=== PATIENT | female | born 1990 | race Caucasian/White ===

== ENCOUNTER 2016-09-04 22:06 | Inpatient (IN) | payer OTHER ==
[~2016-09-04] VITALS: Ht 165.1 cm; Wt 64.5 kg
[2016-09-04 22:16] VITALS: BP 119/82; PULSE 100; RESP 17; TEMP 97.8
[2016-09-04] MEDS ORDERED: SPRI28TA PO (22:24)
[2016-09-04 22:37] LABS: AUTOMATED NEUTROPHIL # 14.9 TH/MM3 (1.8-7.7); BASOPHIL # 0.1 TH/MM3 (0-0.2); BASOPHIL % 0.5 % (0.0-2.0); EOSINOPHIL # 0.1 TH/MM3 (0-0.4); EOSINOPHIL % 0.4 % (0.0-4.0); HEMATOCRIT 35.7 % (35.0-46.0); HEMO FLAGS DIFF FINAL; LYMPH % 19.5 % (9.0-44.0); MEAN CELL VOLUME 95.9 FL (80.0-100.0); MEAN CORPUSCULAR HEMOGLOBIN 31.7 PG (27.0-34.0); MEAN CORPUSCULAR HGB CONC 33.1 % (32.0-36.0); MONO % 6.3 % (0.0-8.0); NEUT % 73.3 % (16.0-70.0); PLATELET COUNT 282 TH/MM3 (150-450); RED BLOOD COUNT 3.72 MIL/MM3 (4.00-5.30); RED CELL DISTRIBUTION WIDTH 13.5 % (11.6-17.2); WHITE BLOOD COUNT 20.3 TH/MM3 (4.0-11.0)
[2016-09-04] MEDS ORDERED: MORPHINE SULFATE 4 MG/ML INJ IV PUSH ONE (22:45)
[2016-09-04] MEDS ORDERED: SODIUM CHLOR 0.9% 1000 ML INJ 1,000 ML IV ONE (22:45)
[2016-09-04] MEDS ORDERED: ONDANSETRON HCL 4 MG/2 ML VIAL IV PUSH ONE (22:45)
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
[2016-09-04 22:50] LABS: APTT (PATIENT) 21.3 SEC (24.3-30.1); PROTHROMBIN TIME - PATIENT 11.2 SEC (9.8-11.6)
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
[2016-09-04 22:56] LABS: ALKALINE PHOSPHATASE 72 U/L (45-117); TOTAL BILIRUBIN ADULT 0.3 MG/DL (0.2-1.0)
[2016-09-04] MEDS ORDERED: HYDROmorphone HCL PF 2 MG/ML VIAL IVS ONE (23:00)
[2016-09-04 23:06] VITALS: BP 102/53; PULSE 103; RESP 17; O2SAT 97
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
[2016-09-04 23:11] LABS: ALT (GPT) 200 U/L (10-53); ANION GAP 12 MEQ/L (5-15); AST (GOT) 462 U/L (15-37); BICARBONATE 20.8 MEQ/L (21.0-32.0); BLOOD UREA NITROGEN 11 MG/DL (7-18); CHLORIDE 115 MEQ/L (98-107); GLOMERULAR FILTRATION RATE 69 ML/MIN (>89); SODIUM (NA) 148 MEQ/L (136-145)
[2016-09-04 23:25] LABS: BLOOD, URINE LARGE (NEG); COMMENT (UR) CULTURE INDICATED; CULTURE IF INDICATED CULTURE INDICATED; GLUCOSE,URINE NEG (NEG); KETONE, URINE NEG (NEG); MUCUS URINE FEW /lpf (OCC); NITRITE,URINE NEG (NEG); PH, URINE 7.5 (5.0-8.5); SQUAMOUS EPITHELIAL CELL URINE 1 /hpf (0-5); URINE COLOR YELLOW (YELLW/STRAW)
[2016-09-04] MEDS ORDERED: IOHEXOL 350 MG/ML 10 ML VIAL (for RAD DIAG) IV ONE (23:37)
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
[2016-09-05] VITALS (13 sets, daily range): BP systolic 98–124; BP diastolic 54–67; PULSE 84–110; RESP 13–17; TEMP 98–98.6; O2SAT 96–100
[2016-09-05] MEDS ORDERED: MORPHINE SULFATE 4 MG/ML INJ IV PUSH ONE
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
[2016-09-05] MEDS ORDERED: NALOXONE HCL 0.4 MG/ML AMP IV PRN (00:15)
[2016-09-05] MEDS ORDERED: SODIUM CHLORIDE 0.9% FLUSH 10 ML FLUSH IV FLUSH PRN (00:15)
[2016-09-05] MEDS ORDERED: ONDANSETRON HCL 4 MG/2 ML VIAL IV PRN (00:15)
[2016-09-05] MEDS ORDERED: oxyCODONE/ACETAMINOPHEN 5 MG/325 MG TAB PO PRN (00:15)
[2016-09-05] MEDS ORDERED: Post-op Orders (for Pharmacy) MISC XX ONE (00:15)
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
[2016-09-05] MEDS: PANTOPRAZOLE SOD 40 MG DELAYED RELEASE TAB PO SCH ×2 (00:43→23:33)
[2016-09-05] MEDS: SODIUM CHLOR 0.9% 1000 ML INJ 1,000 ML IV SCH ×3 (00:43→20:53)
[2016-09-05 00:48] LABS: HEMATOCRIT 32.2 % (35.0-46.0)
[2016-09-05] MEDS ORDERED: LIDOCAINE 1%/EPINEPHrine 1:100,000 SOLN 20 ML VIAL INFIL ONE (01:00)
[2016-09-05] MEDS: MORPHINE SULFATE 4 MG/ML INJ IV PRN ×2 (01:02→03:23)
[2016-09-05] MEDS ORDERED: ceFAZolin 2 GM PREMIX 50 ML ONE (01:13)
[2016-09-05] MEDS ORDERED: ceFAZolin 2 GM PREMIX 50 ML IV ONE (01:45)
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
[2016-09-05] MEDS ORDERED: ceFAZolin INJ 1,000 MG VIAL ONE (07:29)
[2016-09-05] MEDS: METHOCARBAMOL 500 MG TAB PO SCH ×3 (07:45→20:52)
[2016-09-05 07:54] LABS: HEMATOCRIT 33.1 % (35.0-46.0); REVIEW FLAG FINAL
[2016-09-05] MEDS: DOCUSATE SODIUM 50 MG/SENNA 8.6 MG TAB PO SCH ×2 (08:41→20:52)
[2016-09-05] MEDS: SODIUM CHLORIDE 0.9% FLUSH 10 ML FLUSH IV FLUSH SCH ×2 (08:41→21:00)
[2016-09-05] MEDS ORDERED: HYDROmorphone HCL PF 2 MG/ML VIAL ONE (09:31)
[2016-09-05] MEDS ORDERED: ACETAMINOPHEN 1000 MG/100 ML VIAL IV ONE (09:31)
[2016-09-05] MEDS ORDERED: MULTIVITAMIN INJ 10 ML, THIAMINE INJ 100 MG, FOLIC ACID INJ 1 MG in SODIUM CHLORID 0.9%... IV ONE (10:00)
[2016-09-05] MEDS ORDERED: SODIUM CHLOR 0.9% 250 ML INJ 250 ML ONE (10:03)
[2016-09-05] MEDS ORDERED: VANCOMYCIN HCL 1000 MG VIAL ONE (10:03)
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
[2016-09-05] MEDS: LACTATED RINGER'S 1000 ML INJ 1,000 ML IV SCH ×2 (11:02→20:53)
[2016-09-05] MEDS ORDERED: MIDAZOLAM HCL 2 MG/2 ML VIAL ONE (11:27)
[2016-09-05] MEDS ORDERED: fentaNYL CITRATE 250 MCG/5 ML AMP ONE (11:27)
[2016-09-05] MEDS ORDERED: *MEPERIDINE 25 MG INJ VIAL PERIprocedural Use ONLY ONE (11:31)
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
[2016-09-05] MEDS ORDERED: PROPOFOL 200 MG/20 ML AMP IV ONE (12:00)
[2016-09-05] MEDS ORDERED: NEOSTIGMINE 3 MG/3 ML SYR IV ONE (12:00)
[2016-09-05] MEDS ORDERED: LACTATED RINGER'S 1000 ML INJ 1,000 ML IV ONE (12:00)
[2016-09-05] MEDS ORDERED: PHENYLEPH/NS 1000 MCG/10 ML SYR IV ONE (12:00)
[2016-09-05] MEDS ORDERED: ONDANSETRON HCL 4 MG/2 ML VIAL IV PUSH ONE (12:00)
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
[2016-09-05] MEDS: MORPHINE SULFATE 4 MG/ML INJ IV PUSH PRN ×2 (12:41→20:50)
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
[2016-09-05] MEDS ORDERED: MIDAZOLAM HCL 5 MG/ML VIAL (1 ML) ONE (13:13)
--- NOTE | 2016-09-05 13:26 | RADRPT ---
EXAM DATE/TIME: 09/05/2016 10:42 [facility] COMPARISON: No previous studies available for comparison. INDICATIONS : Pelvis fracture external fixation with SI joint screws. OR. MEDICAL HISTORY : None. SURGICAL HISTORY : None. ENCOUNTER: Initial ACUITY: 1 day PAIN SCORE: Non-responsive. LOCATION: pelvis FINDINGS: 7 spot intraoperative fluoroscopic views of the pelvis are obtained and demonstrate external fixation hardware placement of the bilateral iliac bones, as well as screws traversing the bilateral sacroili ac joints. Displaced oblique fractures through the bilateral superior pubic rami are noted as well as a right inferior pubic ramus fracture. CONCLUSION: Postoperative changes are noted. Rob Oconnor MD on September 05, 2016 at 13:24 Board Certified Radiologist. This report was verified electronically.
[2016-09-05] MEDS ORDERED: MIDAZOLAM HCL 2 MG/2 ML VIAL IV ONE (14:15)
[2016-09-05] MEDS ORDERED: PROPOFOL 1000 MG/100 ML INJ 100 ML ONE (17:04)
[2016-09-05] MEDS ORDERED: SUCCINYLCHOLINE CHLORIDE 200 MG/10 ML VIAL ONE (17:19)
--- NOTE | 2016-09-05 17:48 | HHI.PR ---
Immediate Post Op Note Procedure Date: September 05, 2016 Pre Op Diagnosis: (1) Dislocation, shoulder closed left shoulder dislocation - anterior Post Op Diagnosis: (1) Dislocation, shoulder closed Surgeon: Al Leblanc Audiovisual Tech(s): none Procedure: Closed reduction of left shoulder Findings: Consent was given for closer reduction of left shoulder with conscious sedation. The patient tolerated the procedure well. She underwent conscious duration and once sedation was achieved, the left shoulder was manually reduced. Afterwards reduction was confirmed with x-ray examination. She was then placed into a sling and swath. She'll remain nonweightbearing and maintain her sling and swath at all times Anesthesia: Conscious Sedation Patient to: [facility] Patient Condition: Good Al Leblanc September 05, 2016 17:48
--- NOTE | 2016-09-05 17:51 | PD.ORT.PN ---
Subjective Subjective Remarks POD 0 s/p reduction bilateral SI joints and application pelvic exfix POD 0 s/p closed reduction of left shoulder Objective Vitals Vital Signs Date Time Temp Pulse Resp B/P Pulse Ox O2 Delivery O2 Flow Rate FiO2 09/05/16 16:00 86 09/05/16 14:00 98 09/05/16 12:46 18 09/05/16 12:02 109 20 134/81 100 Nasal Cannula 2 09/05/16 12:00 100 09/05/16 11:45 105 20 146/76 100 Nasal Cannula 2 09/05/16 11:30 101 20 147/90 100 Nasal Cannula 2 09/05/16 11:22 97.7 102 20 134/69 95 Nasal Cannula 2 09/05/16 07:45 110 09/05/16 07:30 98.4 101 13 112/64 99 09/05/16 07:04 13 09/05/16 07:00 99 Room Air 09/05/16 06:00 100 09/05/16 04:00 98.2 104 15 100/58 96 09/05/16 04:00 104 09/05/16 02:00 98.0 104 14 98/54 96 09/05/16 02:00 104 09/05/16 01:00 103 19 105/58 99 09/05/16 00:10 18 09/05/16 00:00 110 17 106/61 99 Room Air 09/04/16 23:37 17 09/04/16 23:06 103 17 102/53 97 Room Air 09/04/16 22:52 17 09/04/16 22:16 97.8 100 17 119/82 I/O 09/04/16 09/04/16 09/04/16 09/05/16 09/05/16 09/05/16 07:00 15:00 23:00 07:00 15:00 23:00 Intake Total 455 ml 2695 ml Output Total 1075 ml 10 ml Balance -620 ml 2685 ml Intake Oral 50 ml IV Total 405 ml 45 ml Other 2650 ml Output Urine Total 1075 ml Stool Total 0 ml Estimated Blood Loss 10 ml Result Diagram: 09/05/16 0642 09/04/16 2220 Other Results Laboratory Tests Test 09/04/16 22:20 Prothrombin Time 11.2 SEC (9.8-11.6) Prothromb Time International 1.0 RATIO Ratio Imaging Last 24 hours Impressions Shoulder X-Ray 09/05/16 0000 Signed Impressions: Service Date/Time: Monday, September 05, 2016 12:36 - CONCLUSION: Anterior shoulder dislocation. Rob Oconnor MD Pelvis X-Ray 09/05/16 0000 Signed Impressions: Service Date/Time: Monday, September 05, 2016 10:42 - CONCLUSION: Postoperative changes are noted. Rob Oconnor MD Abdomen/Pelvis CT 09/04/162237 Signed Impressions: Service Date/Time: Sunday, September 04, 2016 23:34 - CONCLUSION: 1. Large hepatic laceration of right hepatic lobe with tiny amount of fluid adjacent to the tip of the liver. 2. Multiple fractures. 3. Extraperitoneal hematomas within the pelvis. 4. Slight right lung base contusion and/or atelectasis. Abdi Vang MD Pelvis X-Ray 09/04/162216 Signed Impressions: Service Date/Time: Sunday, September 04, 2016 22:30 - CONCLUSION: Bilateral fractures through the superior and inferior pubic rami. Antolin Roberts MD Lumbar Spine CT 09/04/162216 Signed Impressions: Service Date/Time: Sunday, September 04, 2016 23:36 - CONCLUSION: Multiple fractures, extraperitoneal hematomas within the pelvis discussed on the patient's CT abdomen and pelvis without any significant thecal sac stenosis, however some of the fractures involve the right sacral foramina and injury to sacral roots particularly the right S1 and S2 nerves is not excluded. Abdi Vang MD Head CT 09/04/162216 Signed Impressions: Service Date/Time: Sunday, September 04, 2016 23:28 - CONCLUSION: Unremarkable study except for slight left frontal scalp hematoma. Abdi Vang MD Chest X-Ray 09/04/162216 Signed Impressions: Service Date/Time: Sunday, September 04, 2016 22:32 - CONCLUSION: No acute disease. Antolin Roberts MD Cervical Spine CT 09/04/162216 Signed Impressions: Service Date/Time: Sunday, September 04, 2016 23:28 - CONCLUSION: Unremarkable study. Abdi Vang MD Objective Remarks Pelvis: pin sites clean. minimal drainage. dressings clean and dry. Left shoulder: +sling/swathe. NVI Assessment & Plan Assessment and Plan 1) Bilateral SI joint disruption s/p screw fixation - POD 0 2) Bilateral Superior/Inferior pubic rami fractures s/p application external fixator - POD 0 3) Left shoulder dislocation s/p closed reduction - POD 0 -NWB BLE/LUE -pin care bid of exfix -dressing changes POD 2 of bilateral hip incisions -maintain sling/swathe at all times Al Leblanc September 05, 2016 17:51
--- NOTE | 2016-09-05 17:58 | RADRPT ---
EXAM DATE/TIME: 09/05/2016 17:34 [facility] COMPARISON: SHOULDER LEFT LTD (2VWS), September 05, 2016, 12:36. INDICATIONS : Left shoulder post reduction. MEDICAL HISTORY : None. SURGICAL HISTORY : None. ENCOUNTER: Subsequent ACUITY: 2 days PAIN SCORE: Non-responsive. LOCATION: Left shoulder FINDINGS: Post reduction film is obtained and demonstrate interval reduction of left shoulder dislocation. No o bvious fracture fragments are identified. CONCLUSION: Interval reduction. Rob Oconnor MD on September 05, 2016 at 17:56 Board Certified Radiologist. This report was verified electronically.
[2016-09-05 18:52] LABS: HEMATOCRIT 31.5 % (35.0-46.0); REVIEW FLAG FINAL
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
[2016-09-05] MEDS: ACETAMINOPHEN/HYDROcodone 325 MG/10 MG TAB PO PRN ×2 (20:52→23:33)
[2016-09-06] VITALS (12 sets, daily range): BP systolic 103–129; BP diastolic 56–72; PULSE 94–110; RESP 14–21; TEMP 97.9–99.5; O2SAT 93–100
[2016-09-06] MEDS: MORPHINE SULFATE 4 MG/ML INJ IV PUSH PRN ×4 (00:16→09:01)
[2016-09-06] MEDS: ENOXAPARIN SODIUM 30 MG/0.3 ML SYRINGE SQ SCH ×3 (00:16→23:46)
[2016-09-06] MEDS: SODIUM CHLOR 0.9% 1000 ML INJ 1,000 ML IV SCH ×2 (02:18→16:02)
[2016-09-06] MEDS: LACTATED RINGER'S 1000 ML INJ 1,000 ML IV SCH (03:38)
[2016-09-06 04:38] LABS: AUTOMATED NEUTROPHIL # 10.2 TH/MM3 (1.8-7.7); BASOPHIL % 0.3 % (0.0-2.0); EOSINOPHIL % 0.1 % (0.0-4.0); HEMATOCRIT 26.4 % (35.0-46.0); HEMO FLAGS DIFF FINAL; LYMPHOCYTE # 1.5 TH/MM3 (1.0-4.8); MEAN CELL VOLUME 97.2 FL (80.0-100.0); MEAN CORPUSCULAR HEMOGLOBIN 32.2 PG (27.0-34.0); MEAN CORPUSCULAR HGB CONC 33.1 % (32.0-36.0); MONO % 11.7 % (0.0-8.0); NEUT % 76.9 % (16.0-70.0); PLATELET COUNT 161 TH/MM3 (150-450); RED BLOOD COUNT 2.71 MIL/MM3 (4.00-5.30); RED CELL DISTRIBUTION WIDTH 13.7 % (11.6-17.2); WHITE BLOOD COUNT 13.3 TH/MM3 (4.0-11.0)
[2016-09-06 04:49] LABS: BICARBONATE 26.8 MEQ/L (21.0-32.0); POTASSIUM 3.6 MEQ/L (3.5-5.1)
[2016-09-06 05:11] LABS: CALCIUM-PROTEIN CORRECTED 8.1 MG/DL (8.5-10.1)
[2016-09-06] MEDS: ACETAMINOPHEN/HYDROcodone 325 MG/10 MG TAB PO PRN ×5 (05:11→22:32)
[2016-09-06] MEDS: METHOCARBAMOL 500 MG TAB PO SCH ×3 (05:11→20:59)
--- NOTE | 2016-09-06 07:15 | PD.ORT.PN ---
Subjective Subjective Remarks POD 1 s/p reduction bilateral SI joints and application pelvic exfix POD 1 s/p closed reduction of left shoulder doing well. reports pain but resting comfortably Objective Vitals Vital Signs Date Time Temp Pulse Resp B/P Pulse Ox O2 Delivery O2 Flow Rate FiO2 09/06/16 06:44 18 09/06/16 06:19 18 09/06/16 04:00 98.4 96 15 103/59 98 09/06/16 00:00 97.9 96 17 118/63 98 09/05/16 20:00 98.6 84 16 119/64 99 09/05/16 18:00 89 09/05/16 18:00 98.0 105 13 124/67 100 09/05/16 17:00 100 4.00 09/05/16 16:00 86 09/05/16 14:00 98 09/05/16 12:02 109 20 134/81 100 Nasal Cannula 2 09/05/16 12:00 100 09/05/16 11:45 105 20 146/76 100 Nasal Cannula 2 09/05/16 11:30 101 20 147/90 100 Nasal Cannula 2 09/05/16 11:22 97.7 102 20 134/69 95 Nasal Cannula 2 09/05/16 07:45 110 09/05/16 07:30 98.4 101 13 112/64 99 I/O 09/05/16 09/05/16 09/05/16 09/06/16 09/06/16 09/06/16 07:00 15:00 23:00 07:00 15:00 23:00 Intake Total 455 ml 2695 ml 1373 ml 658 ml Output Total 1075 ml 10 ml 600 ml 1800 ml Balance -620 ml 2685 ml 773 ml -1142 ml Intake Oral 50 ml 300 ml IV Total 405 ml 45 ml 1073 ml 658 ml Other 2650 ml Output Urine Total 1075 ml 600 ml 1800 ml Stool Total 0 ml Estimated Blood Loss 10 ml # Bowel Movements 0 0 Result Diagram: 09/06/1630609/06/16 030 Imaging Last 24 hours Impressions Shoulder X-Ray 09/05/16 0000 Signed Impressions: Service Date/Time: Monday, September 05, 2016 12:36 - CONCLUSION: Anterior shoulder dislocation. Rob Oconnor MD Pelvis X-Ray 09/05/16 0000 Signed Impressions: Service Date/Time: Monday, September 05, 2016 10:42 - CONCLUSION: Postoperative changes are noted. Rob Oconnor MD Abdomen/Pelvis CT 09/04/162237 Signed Impressions: Service Date/Time: Sunday, September 04, 2016 23:34 - CONCLUSION: 1. Large hepatic laceration of right hepatic lobe with tiny amount of fluid adjacent to the tip of the liver. 2. Multiple fractures. 3. Extraperitoneal hematomas within the pelvis. 4. Slight right lung base contusion and/or atelectasis. Abdi Vang MD Pelvis X-Ray 09/04/162216 Signed Impressions: Service Date/Time: Sunday, September 04, 2016 22:30 - CONCLUSION: Bilateral fractures through the superior and inferior pubic rami. Antolin Roberts MD Lumbar Spine CT 09/04/162216 Signed Impressions: Service Date/Time: Sunday, September 04, 2016 23:36 - CONCLUSION: Multiple fractures, extraperitoneal hematomas within the pelvis discussed on the patient's CT abdomen and pelvis without any significant thecal sac stenosis, however some of the fractures involve the right sacral foramina and injury to sacral roots particularly the right S1 and S2 nerves is not excluded. Abdi Vang MD Head CT 09/04/162216 Signed Impressions: Service Date/Time: Sunday, September 04, 2016 23:28 - CONCLUSION: Unremarkable study except for slight left frontal scalp hematoma. Abdi Vang MD Chest X-Ray 09/04/162216 Signed Impressions: Service Date/Time: Sunday, September 04, 2016 22:32 - CONCLUSION: No acute disease. Antolin Roberts MD Cervical Spine CT 09/04/162216 Signed Impressions: Service Date/Time: Sunday, September 04, 2016 23:28 - CONCLUSION: Unremarkable study. Abdi Vang MD Objective Remarks Pelvis: pin sites clean. minimal drainage. dressings clean and dry. NVI bilaterally Left shoulder: +sling/swathe. NVI Assessment & Plan Assessment and Plan 1) Bilateral SI joint disruption s/p screw fixation - POD 1 2) Bilateral Superior/Inferior pubic rami fractures s/p application external fixator - POD 1 3) Left shoulder dislocation s/p closed reduction - POD 1 -NWB BLE/LUE -pin care bid of exfix -dressing changes POD 2 of bilateral hip incisions -maintain sling/swathe at all times -ortho surgeries completed Al Leblanc September 06, 2016 07:15
[2016-09-06] MEDS: DOCUSATE SODIUM 50 MG/SENNA 8.6 MG TAB PO SCH ×2 (09:01→20:59)
[2016-09-06] MEDS ORDERED: CHLORHEXIDINE GLUCONATE 2 % 1 PACK (2 CLOTHS) TOP PRN (09:30)
[2016-09-06] MEDS ORDERED: MISCELLANEOUS NURSING INFORMATION XX SCH (09:30)
[2016-09-06 10:53] LABS: INDIRECT BILIRUBIN 0.2 MG/DL (0.0-0.8); TOTAL BILIRUBIN ADULT 0.3 MG/DL (0.2-1.0)
[2016-09-06] MEDS: LACTULOSE SYRUP 20 GM/30 ML CUP PO SCH (11:06)
[2016-09-06] MEDS: SODIUM CHLORIDE 0.9% FLUSH 10 ML FLUSH IV FLUSH SCH ×2 (11:07→20:59)
[2016-09-06] MEDS: HYDROmorphone HCL PF 1 MG/ML VIAL IV PUSH PRN ×4 (11:07→20:59)
[2016-09-06] MEDS: BACITRACIN TOP OINT 15 GM TUBE TOPICAL SCH ×2 (12:21→21:00)
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
[2016-09-06] MEDS ORDERED: BISACODYL 10 MG SUPP RECTAL PRN (17:45)
[2016-09-06] MEDS: SUMAtriptan SUCCINATE 50 MG TAB PO PRN (18:32)
[2016-09-06] MEDS: MORPHINE SULFATE 4 MG/ML INJ IV PRN (23:46)
[2016-09-06] MEDS: PANTOPRAZOLE SOD 40 MG DELAYED RELEASE TAB PO SCH (23:46)
[2016-09-07] MEDS: MORPHINE SULFATE 4 MG/ML INJ IV PRN ×5 (01:38→15:50)
[2016-09-07] MEDS: SODIUM CHLOR 0.9% 1000 ML INJ 1,000 ML IV SCH ×3 (02:02→22:02)
[2016-09-07] MEDS: ACETAMINOPHEN/HYDROcodone 325 MG/10 MG TAB PO PRN ×5 (02:50→22:14)
[2016-09-07 04:00] VITALS: BP 108/58; PULSE 116; RESP 17; TEMP 97.8; O2SAT 90
[2016-09-07] MEDS: CHLORHEXIDINE GLUCONATE 2 % 1 PACK (2 CLOTHS) TOP SCH ×2 (04:00→23:59)
[2016-09-07] MEDS ORDERED: WHEEMIS3 (06:19)
[2016-09-07] MEDS ORDERED: XARE10TA PO (06:19)
[2016-09-07] MEDS ORDERED: HYDR-3583 PO (06:19)
[2016-09-07] MEDS: DOCUSATE SODIUM 50 MG/SENNA 8.6 MG TAB PO SCH ×2 (07:53→20:19)
[2016-09-07] MEDS: LACTULOSE SYRUP 20 GM/30 ML CUP PO SCH (07:53)
[2016-09-07] MEDS: SODIUM CHLORIDE 0.9% FLUSH 10 ML FLUSH IV FLUSH SCH ×2 (07:53→20:20)
[2016-09-07] MEDS: METHOCARBAMOL 500 MG TAB PO SCH ×3 (07:53→22:00)
[2016-09-07] MEDS: BACITRACIN TOP OINT 15 GM TUBE TOPICAL SCH ×2 (07:57→20:20)
[2016-09-07 08:00] VITALS: BP 107/62; PULSE 108; RESP 18; TEMP 98.7; O2SAT 91
[2016-09-07 08:04] LABS: AUTOMATED NEUTROPHIL # 7.9 TH/MM3 (1.8-7.7); BASOPHIL # 0.1 TH/MM3 (0-0.2); BASOPHIL % 0.5 % (0.0-2.0); EOSINOPHIL # 0.2 TH/MM3 (0-0.4); EOSINOPHIL % 1.7 % (0.0-4.0); HEMATOCRIT 27.3 % (35.0-46.0); HEMO FLAGS DIFF FINAL; LYMPH % 16.8 % (9.0-44.0); LYMPHOCYTE # 1.8 TH/MM3 (1.0-4.8); MEAN CELL VOLUME 98.2 FL (80.0-100.0); MEAN CORPUSCULAR HEMOGLOBIN 32.7 PG (27.0-34.0); MEAN CORPUSCULAR HGB CONC 33.3 % (32.0-36.0); MONO % 8.6 % (0.0-8.0); NEUT % 72.4 % (16.0-70.0); PLATELET COUNT 166 TH/MM3 (150-450); RED BLOOD COUNT 2.78 MIL/MM3 (4.00-5.30); RED CELL DISTRIBUTION WIDTH 13.6 % (11.6-17.2); WHITE BLOOD COUNT 10.9 TH/MM3 (4.0-11.0)
[2016-09-07 08:25] LABS: ALKALINE PHOSPHATASE 64 U/L (45-117); ALT (GPT) 112 U/L (10-53); ANION GAP 6 MEQ/L (5-15); AST (GOT) 162 U/L (15-37); BICARBONATE 29.8 MEQ/L (21.0-32.0); BLOOD UREA NITROGEN 3 MG/DL (7-18); CHLORIDE 106 MEQ/L (98-107); GLOMERULAR FILTRATION RATE 113 ML/MIN (>89); POTASSIUM 3.7 MEQ/L (3.5-5.1); SODIUM (NA) 142 MEQ/L (136-145); TOTAL BILIRUBIN ADULT 0.4 MG/DL (0.2-1.0)
[2016-09-07] MEDS: ENOXAPARIN SODIUM 30 MG/0.3 ML SYRINGE SQ SCH (11:34)
[2016-09-07] MEDS: SUMAtriptan SUCCINATE 50 MG TAB PO PRN ×2 (11:36→20:48)
--- NOTE | 2016-09-07 11:54 | PD.ORT.PN ---
Subjective Subjective Remarks Resting with pain controlled. Not wearing sling Objective Vitals Vital Signs Date Time Temp Pulse Resp B/P Pulse Ox O2 Delivery O2 Flow Rate FiO2 09/07/16 08:00 98.7 108 18 107/62 91 09/07/16 04:54 18 09/07/16 04:00 97.8 116 17 108/58 90 09/07/16 03:59 18 09/06/16 22:30 99.5 105 16 111/70 93 09/06/16 22:09 18 09/06/16 20:05 97 Nasal Cannula 2.00 09/06/16 20:00 95 09/06/16 20:00 99.2 108 14 117/66 96 09/06/16 19:32 12 09/06/16 18:00 110 09/06/16 16:00 96 09/06/16 16:00 98.2 102 16 119/72 95 09/06/16 14:00 98 09/06/16 12:00 98.3 102 21 129/59 93 09/06/16 12:00 102 I/O 09/06/16 09/06/16 09/06/16 09/07/16 09/07/16 09/07/16 07:00 15:00 23:00 07:00 15:00 23:00 Intake Total 658 ml 1343 ml 500 ml 300 ml Output Total 1800 ml 1275 ml 925 ml 1860 ml Balance -1142 ml 68 ml -425 ml -1560 ml Intake Oral 950 ml 500 ml 300 ml IV Total 658 ml 393 ml Output Urine Total 1800 ml 1275 ml 925 ml 1860 ml # Bowel Movements 0 0 1 Result Diagram: 09/07/1624 09/07/16 0724 Imaging Last 24 hours Impressions Shoulder X-Ray 09/05/16 0000 Signed Impressions: Service Date/Time: Monday, September 05, 2016 12:36 - CONCLUSION: Anterior shoulder dislocation. Rob Oconnor MD Pelvis X-Ray 09/05/16 0000 Signed Impressions: Service Date/Time: Monday, September 05, 2016 10:42 - CONCLUSION: Postoperative changes are noted. Rob Oconnor MD Abdomen/Pelvis CT 09/04/16 2238 Signed Impressions: Service Date/Time: Sunday, September 04, 2016 23:34 - CONCLUSION: 1. Large hepatic laceration of right hepatic lobe with tiny amount of fluid adjacent to the tip of the liver. 2. Multiple fractures. 3. Extraperitoneal hematomas within the pelvis. 4. Slight right lung base contusion and/or atelectasis. Abdi Vang MD Pelvis X-Ray 09/04/162216 Signed Impressions: Service Date/Time: Sunday, September 04, 2016 22:30 - CONCLUSION: Bilateral fractures through the superior and inferior pubic rami. Antolin Roberts MD Lumbar Spine CT 09/04/162216 Signed Impressions: Service Date/Time: Sunday, September 04, 2016 23:36 - CONCLUSION: Multiple fractures, extraperitoneal hematomas within the pelvis discussed on the patient's CT abdomen and pelvis without any significant thecal sac stenosis, however some of the fractures involve the right sacral foramina and injury to sacral roots particularly the right S1 and S2 nerves is not excluded. Abdi Vang MD Head CT 09/04/162216 Signed Impressions: Service Date/Time: Sunday, September 04, 2016 23:28 - CONCLUSION: Unremarkable study except for slight left frontal scalp hematoma. Abdi Vang MD Chest X-Ray 09/04/162216 Signed Impressions: Service Date/Time: Sunday, September 04, 2016 22:32 - CONCLUSION: No acute disease. Antolin Roberts MD Cervical Spine CT 09/04/162216 Signed Impressions: Service Date/Time: Sunday, September 04, 2016 23:28 - CONCLUSION: Unremarkable study. Abdi Vang MD Objective Remarks Pelvis: pin sites clean. minimal drainage. dressings clean and dry. NVI bilaterally Left shoulder: reduced and distally NVI. Not wearing sling Assessment & Plan Assessment and Plan 1) Bilateral SI joint disruption s/p screw fixation - POD 2 2) Bilateral Superior/Inferior pubic rami fractures s/p application external fixator - POD 2 3) Left shoulder dislocation s/p closed reduction - POD 2 -NWB BLE/LUE -pin care bid of x-fix -daily dressing changes bilateral hip incisions -maintain sling/swathe at all times -ortho surgeries completed PT work on transfers to wheelchair DC planning - ortho cleared if plan arranged Antolin Castaneda Jr. September 07, 2016 11:54
[2016-09-07 12:18] VITALS: BP 110/64; PULSE 99; RESP 16; TEMP 97.9; O2SAT 93
[2016-09-07 12:26] VITALS: O2SAT 96
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
--- NOTE | 2016-09-07 14:31 | RADRPT ---
EXAM DATE/TIME: 09/07/2016 13:33 [facility] COMPARISON: CHEST SINGLE AP, September 04, 2016, 22:32. INDICATIONS : Pulm Contusion MEDICAL HISTORY : None. SURGICAL HISTORY : None. ENCOUNTER: Subsequent ACUITY: 4 - 6 days PAIN SCORE: 0/10 LOCATION: Bilateral chest FINDINGS: A single view of the chest demonstrates the lungs to be symmetrically aerated without evidence of mas s, infiltrate or effusion. The cardiomediastinal contours are unremarkable. Osseous structures are intact. CONCLUSION: No acute disease. Dangelo Rosario MD on September 07, 2016 at 14:29 Board Certified Radiologist. This report was verified electronically.
[2016-09-07 16:45] VITALS: BP 123/72; PULSE 92; RESP 18; TEMP 98.1; O2SAT 92
[2016-09-07 20:40] VITALS: BP 120/81; PULSE 105; RESP 17; TEMP 98.6; O2SAT 95
[2016-09-08] MEDS: ENOXAPARIN SODIUM 30 MG/0.3 ML SYRINGE SQ SCH ×2 (00:32→11:35)
[2016-09-08] MEDS: PANTOPRAZOLE SOD 40 MG DELAYED RELEASE TAB PO SCH (00:32)
[2016-09-08 00:36] VITALS: BP 123/86; PULSE 95; RESP 17; TEMP 97.1; O2SAT 95
[2016-09-08] MEDS: ACETAMINOPHEN/HYDROcodone 325 MG/10 MG TAB PO PRN ×5 (02:46→21:01)
[2016-09-08] MEDS: MORPHINE SULFATE 4 MG/ML INJ IV PRN ×2 (04:50→11:42)
[2016-09-08] MEDS: METHOCARBAMOL 500 MG TAB PO SCH ×3 (04:51→21:00)
[2016-09-08 08:00] VITALS: BP 111/63; PULSE 73; RESP 18; TEMP 99.1; O2SAT 92
[2016-09-08] MEDS: SODIUM CHLOR 0.9% 1000 ML INJ 1,000 ML IV SCH ×2 (08:02→11:40)
[2016-09-08] MEDS: LACTULOSE SYRUP 20 GM/30 ML CUP PO SCH ×2 (09:00→09:29)
[2016-09-08] MEDS: BACITRACIN TOP OINT 15 GM TUBE TOPICAL SCH ×2 (09:00→21:02)
[2016-09-08] MEDS: SODIUM CHLORIDE 0.9% FLUSH 10 ML FLUSH IV FLUSH SCH ×2 (09:29→21:00)
[2016-09-08] MEDS: DOCUSATE SODIUM 50 MG/SENNA 8.6 MG TAB PO SCH ×2 (09:29→21:00)
[2016-09-08 09:55] VITALS: O2SAT 96
[2016-09-08] MEDS: SUMAtriptan SUCCINATE 50 MG TAB PO PRN ×2 (11:36→16:53)
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
[2016-09-08 12:00] VITALS: BP 125/78; PULSE 85; RESP 18; TEMP 98.1; O2SAT 97
--- NOTE | 2016-09-08 13:04 | PD.ORT.PN ---
Subjective Subjective Remarks Pt asleep but arousable. Admits pain is well controlled. Accompanied by significant other. No other complaints. Objective Vitals Vital Signs Date Time Temp Pulse Resp B/P Pulse Ox O2 Delivery O2 Flow Rate FiO2 09/08/16 12:47 16 09/08/16 12:00 98.1 85 18 125/78 97 09/08/16 10:30 16 09/08/16 09:55 96 21 09/08/16 08:00 99.1 73 18 111/63 92 09/08/16 04:55 18 09/08/16 00:36 97.1 95 17 123/86 95 09/07/16 20:40 98.6 105 17 120/81 95 09/07/16 16:45 98.1 92 18 123/72 92 I/O 09/07/16 09/07/16 09/07/16 09/08/16 09/08/16 09/08/16 07:00 15:00 23:00 07:00 15:00 23:00 Intake Total 300 ml 1800 ml 240 ml 240 ml Output Total 1860 ml 2200 ml 2050 ml 1850 ml Balance -1560 ml -400 ml -1810 ml -1610 ml Intake Oral 300 ml 1800 ml 240 ml 240 ml Output Urine Total 1860 ml 2200 ml 2050 ml 1850 ml # Bowel Movements 1 1 0 Result Diagram: 09/07/1624 09/07/16 0724 Imaging Last 24 hours Impressions Shoulder X-Ray 09/05/16 0000 Signed Impressions: Service Date/Time: Monday, September 05, 2016 12:36 - CONCLUSION: Anterior shoulder dislocation. Rob Oconnor MD Pelvis X-Ray 09/05/16 0000 Signed Impressions: Service Date/Time: Monday, September 05, 2016 10:42 - CONCLUSION: Postoperative changes are noted. Rob Oconnor MD Abdomen/Pelvis CT 09/04/16 2238 Signed Impressions: Service Date/Time: Sunday, September 04, 2016 23:34 - CONCLUSION: 1. Large hepatic laceration of right hepatic lobe with tiny amount of fluid adjacent to the tip of the liver. 2. Multiple fractures. 3. Extraperitoneal hematomas within the pelvis. 4. Slight right lung base contusion and/or atelectasis. Abdi Vang MD Pelvis X-Ray 09/04/162216 Signed Impressions: Service Date/Time: Sunday, September 04, 2016 22:30 - CONCLUSION: Bilateral fractures through the superior and inferior pubic rami. Antolin Roberts MD Lumbar Spine CT 09/04/162216 Signed Impressions: Service Date/Time: Sunday, September 04, 2016 23:36 - CONCLUSION: Multiple fractures, extraperitoneal hematomas within the pelvis discussed on the patient's CT abdomen and pelvis without any significant thecal sac stenosis, however some of the fractures involve the right sacral foramina and injury to sacral roots particularly the right S1 and S2 nerves is not excluded. Abdi Vang MD Head CT 09/04/162216 Signed Impressions: Service Date/Time: Sunday, September 04, 2016 23:28 - CONCLUSION: Unremarkable study except for slight left frontal scalp hematoma. Abdi Vang MD Chest X-Ray 09/04/162216 Signed Impressions: Service Date/Time: Sunday, September 04, 2016 22:32 - CONCLUSION: No acute disease. Antolin Roberts MD Cervical Spine CT 09/04/162216 Signed Impressions: Service Date/Time: Sunday, September 04, 2016 23:28 - CONCLUSION: Unremarkable study. Abdi Vang MD Objective Remarks Pelvis: pin sites clean. minimal drainage. dressings clean and dry. NVI bilaterally Left shoulder: reduced and distally NVI. Not wearing sling Assessment & Plan Ortho Post Op Day #: 3 Problem List: (1) Bilateral pubic rami fractures (2) Dislocation, shoulder closed Assessment and Plan 1) Bilateral SI joint disruption s/p screw fixation - POD 3 2) Bilateral Superior/Inferior pubic rami fractures s/p application external fixator - POD 3 3) Left shoulder dislocation s/p closed reduction - POD 3 -NWB BLE/LUE -pin care bid of x-fix -daily dressing changes bilateral hip incisions -maintain sling/swathe at all times -ortho surgeries completed PT work on transfers to wheelchair DC planning - ortho cleared if plan arranged Kaitlin Espinoza September 08, 2016 13:04
[2016-09-08 16:00] VITALS: BP 128/85; PULSE 97; RESP 18; TEMP 98; O2SAT 96
[2016-09-08 20:45] VITALS: BP 132/87; PULSE 95; RESP 17; TEMP 97.9; O2SAT 100
[2016-09-09 00:30] VITALS: BP 134/85; PULSE 94; RESP 17; TEMP 98.7; O2SAT 99
[2016-09-09] MEDS: ENOXAPARIN SODIUM 30 MG/0.3 ML SYRINGE SQ SCH ×3 (01:05→23:38)
[2016-09-09] MEDS: PANTOPRAZOLE SOD 40 MG DELAYED RELEASE TAB PO SCH (01:05)
[2016-09-09] MEDS: ACETAMINOPHEN/HYDROcodone 325 MG/10 MG TAB PO PRN ×5 (01:06→21:05)
[2016-09-09] MEDS: CHLORHEXIDINE GLUCONATE 2 % 1 PACK (2 CLOTHS) TOP SCH (04:00)
[2016-09-09] MEDS: SODIUM CHLOR 0.9% 1000 ML INJ 1,000 ML IV SCH ×2 (04:02→10:20)
[2016-09-09] MEDS: METHOCARBAMOL 500 MG TAB PO SCH ×3 (05:33→21:03)
--- NOTE | 2016-09-09 07:41 | PD.ORT.PN ---
Subjective Post Op Day #: 4 Subjective Remarks Pt asleep but arousable. Admits pain is well controlled. Accompanied by significant other. No other complaints. Admits possible placement to rehab today or tomorrow. Objective Vitals Vital Signs Date Time Temp Pulse Resp B/P Pulse Ox O2 Delivery O2 Flow Rate FiO2 09/09/16 00:30 98.7 94 17 134/85 99 09/08/16 20:45 97.9 95 17 132/87 100 09/08/16 16:00 98.0 97 18 128/85 96 09/08/16 14:00 16 09/08/16 12:47 16 09/08/16 12:00 98.1 85 18 125/78 97 09/08/16 09:55 96 21 09/08/16 08:00 99.1 73 18 111/63 92 I/O 09/08/16 09/08/16 09/08/16 09/09/16 09/09/16 09/09/16 07:00 15:00 23:00 07:00 15:00 23:00 Intake Total 240 ml 730 ml 240 ml 720 ml Output Total 1850 ml 1875 ml 1600 ml 1900 ml Balance -1610 ml -1145 ml -1360 ml -1180 ml Intake Oral 240 ml 730 ml 240 ml 720 ml Output Urine Total 1850 ml 1875 ml 1600 ml 1900 ml # Bowel Movements 0 0 Result Diagram: 09/07/1624 09/07/1624 Imaging Last 24 hours Impressions Shoulder X-Ray 09/05/16 0000 Signed Impressions: Service Date/Time: Monday, September 05, 2016 12:36 - CONCLUSION: Anterior shoulder dislocation. Rob Oconnor MD Pelvis X-Ray 09/05/16 0000 Signed Impressions: Service Date/Time: Monday, September 05, 2016 10:42 - CONCLUSION: Postoperative changes are noted. Rob Oconnor MD Abdomen/Pelvis CT 09/04/16 2238 Signed Impressions: Service Date/Time: Sunday, September 04, 2016 23:34 - CONCLUSION: 1. Large hepatic laceration of right hepatic lobe with tiny amount of fluid adjacent to the tip of the liver. 2. Multiple fractures. 3. Extraperitoneal hematomas within the pelvis. 4. Slight right lung base contusion and/or atelectasis. K. Edis Shamlou, MD Pelvis X-Ray 09/04/162216 Signed Impressions: Service Date/Time: Sunday, September 04, 2016 22:30 - CONCLUSION: Bilateral fractures through the superior and inferior pubic rami. Antolin Roberts MD Lumbar Spine CT 09/04/162216 Signed Impressions: Service Date/Time: Sunday, September 04, 2016 23:36 - CONCLUSION: Multiple fractures, extraperitoneal hematomas within the pelvis discussed on the patient's CT abdomen and pelvis without any significant thecal sac stenosis, however some of the fractures involve the right sacral foramina and injury to sacral roots particularly the right S1 and S2 nerves is not excluded. Abdi Vang MD Head CT 09/04/162216 Signed Impressions: Service Date/Time: Sunday, September 04, 2016 23:28 - CONCLUSION: Unremarkable study except for slight left frontal scalp hematoma. Abdi Vang MD Chest X-Ray 09/04/162216 Signed Impressions: Service Date/Time: Sunday, September 04, 2016 22:32 - CONCLUSION: No acute disease. Antolin Roberts MD Cervical Spine CT 09/04/162216 Signed Impressions: Service Date/Time: Sunday, September 04, 2016 23:28 - CONCLUSION: Unremarkable study. Abdi Vang MD Objective Remarks Pelvis: pin sites clean. minimal drainage. dressings clean and dry. NVI bilaterally Left shoulder: reduced and distally NVI. Not wearing sling Assessment & Plan Ortho Post Op Day #: 4 Problem List: (1) Bilateral pubic rami fractures (2) Dislocation, shoulder closed Assessment and Plan 1) Bilateral SI joint disruption s/p screw fixation - POD 4 2) Bilateral Superior/Inferior pubic rami fractures s/p application external fixator - POD 4 3) Left shoulder dislocation s/p closed reduction - POD 4 -NWB BLE/LUE -pin care bid of x-fix -daily dressing changes bilateral hip incisions -maintain sling/swathe at all times -ortho surgeries completed PT work on transfers to wheelchair DC planning - ortho cleared if plan arranged Kaitlin Espinoza September 09, 2016 07:41
[2016-09-09 08:00] VITALS: BP 129/78; PULSE 89; RESP 16; TEMP 97.6; O2SAT 95
[2016-09-09] MEDS: BACITRACIN TOP OINT 15 GM TUBE TOPICAL SCH ×2 (09:24→21:06)
[2016-09-09] MEDS: DOCUSATE SODIUM 50 MG/SENNA 8.6 MG TAB PO SCH ×2 (09:26→21:03)
[2016-09-09] MEDS: LACTULOSE SYRUP 20 GM/30 ML CUP PO SCH (09:26)
[2016-09-09] MEDS: SODIUM CHLORIDE 0.9% FLUSH 10 ML FLUSH IV FLUSH SCH ×2 (09:27→21:04)
[2016-09-09] MEDS: SUMAtriptan SUCCINATE 50 MG TAB PO PRN ×2 (09:27→22:19)
[2016-09-09] MEDS: MORPHINE SULFATE 4 MG/ML INJ IV PRN ×3 (09:47→16:31)
[2016-09-09 10:30] VITALS: O2SAT 99
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
[2016-09-09 12:00] VITALS: BP 125/81; PULSE 89; RESP 16; TEMP 96.4; O2SAT 100
[2016-09-09 16:00] VITALS: BP 133/76; PULSE 91; RESP 16; TEMP 98.2; O2SAT 96
[2016-09-09 20:10] VITALS: BP 142/77; PULSE 92; RESP 17; TEMP 97.9; O2SAT 98
[2016-09-10 00:10] VITALS: BP 133/80; PULSE 82; RESP 17; TEMP 99.3; O2SAT 98
[2016-09-10] MEDS: PANTOPRAZOLE SOD 40 MG DELAYED RELEASE TAB PO SCH ×2 (02:38→23:43)
[2016-09-10] MEDS: ACETAMINOPHEN/HYDROcodone 325 MG/10 MG TAB PO PRN ×5 (02:39→23:44)
[2016-09-10] MEDS: METHOCARBAMOL 500 MG TAB PO SCH ×3 (06:18→21:42)
[2016-09-10 08:00] VITALS: BP 124/67; PULSE 80; RESP 18; TEMP 98.5; O2SAT 97
[2016-09-10] MEDS: LACTULOSE SYRUP 20 GM/30 ML CUP PO SCH (09:00)
[2016-09-10] MEDS: BACITRACIN TOP OINT 15 GM TUBE TOPICAL SCH ×2 (09:00→19:35)
[2016-09-10] MEDS: DOCUSATE SODIUM 50 MG/SENNA 8.6 MG TAB PO SCH ×2 (09:09→19:29)
[2016-09-10] MEDS: SODIUM CHLORIDE 0.9% FLUSH 10 ML FLUSH IV FLUSH SCH ×2 (09:13→19:31)
--- NOTE | 2016-09-10 09:25 | PD.ORT.PN ---
Subjective Post Op Day #: 5 Subjective Remarks The patient is awake alert. There is family at the bedside. She complains of a headache. She is no specific complaint related to the pelvis. Objective Vitals Vital Signs Date Time Temp Pulse Resp B/P Pulse Ox O2 Delivery O2 Flow Rate FiO2 09/10/16 00:10 99.3 82 17 133/80 98 09/09/16 20:10 97.9 92 17 142/77 98 09/09/16 16:00 98.2 91 16 133/76 96 09/09/16 14:25 16 09/09/16 12:00 96.4 89 16 125/81 100 09/09/16 10:30 99 21 09/09/16 10:07 16 09/09/16 10:07 16 I/O 09/09/16 09/09/16 09/09/16 09/10/16 09/10/16 09/10/16 07:00 15:00 23:00 07:00 15:00 23:00 Intake Total 720 ml 700 ml 300 ml 240 ml Output Total 1900 ml 2650 ml 1500 ml 1400 ml Balance -1180 ml -1950 ml -1200 ml -1160 ml Intake Oral 720 ml 700 ml 300 ml 240 ml Output Urine Total 1900 ml 2650 ml 1500 ml 1400 ml # Bowel Movements 0 1 Result Diagram: 09/07/1624 09/07/16 0724 Imaging Last 24 hours Impressions Shoulder X-Ray 09/05/16 0000 Signed Impressions: Service Date/Time: Monday, September 05, 2016 12:36 - CONCLUSION: Anterior shoulder dislocation. Rob Oconnor MD Pelvis X-Ray 09/05/16 0000 Signed Impressions: Service Date/Time: Monday, September 05, 2016 10:42 - CONCLUSION: Postoperative changes are noted. Rob Oconnor MD Abdomen/Pelvis CT 09/04/162237 Signed Impressions: Service Date/Time: Sunday, September 04, 2016 23:34 - CONCLUSION: 1. Large hepatic laceration of right hepatic lobe with tiny amount of fluid adjacent to the tip of the liver. 2. Multiple fractures. 3. Extraperitoneal hematomas within the pelvis. 4. Slight right lung base contusion and/or atelectasis. Abdi Vang MD Pelvis X-Ray 09/04/162216 Signed Impressions: Service Date/Time: Sunday, September 04, 2016 22:30 - CONCLUSION: Bilateral fractures through the superior and inferior pubic rami. Antolin Roberts MD Lumbar Spine CT 09/04/162216 Signed Impressions: Service Date/Time: Sunday, September 04, 2016 23:36 - CONCLUSION: Multiple fractures, extraperitoneal hematomas within the pelvis discussed on the patient's CT abdomen and pelvis without any significant thecal sac stenosis, however some of the fractures involve the right sacral foramina and injury to sacral roots particularly the right S1 and S2 nerves is not excluded. Abdi Vang MD Head CT 09/04/162216 Signed Impressions: Service Date/Time: Sunday, September 04, 2016 23:28 - CONCLUSION: Unremarkable study except for slight left frontal scalp hematoma. Abdi Vang MD Chest X-Ray 09/04/162216 Signed Impressions: Service Date/Time: Sunday, September 04, 2016 22:32 - CONCLUSION: No acute disease. Antolin Roberts MD Cervical Spine CT 09/04/162216 Signed Impressions: Service Date/Time: Sunday, September 04, 2016 23:28 - CONCLUSION: Unremarkable study. Abdi Vang MD Objective Remarks Pelvis: pin sites clean. minimal drainage. dressings clean and dry. NVI bilaterally Left shoulder: reduced and distally NVI. Not wearing sling Assessment & Plan Problem List: (1) Bilateral pubic rami fractures (2) Dislocation, shoulder closed Assessment and Plan 1) Bilateral SI joint disruption s/p screw fixation - POD 5 2) Bilateral Superior/Inferior pubic rami fractures s/p application external fixator - POD 5 3) Left shoulder dislocation s/p closed reduction - POD 5 -NWB BLE/LUE -pin care bid of x-fix -daily dressing changes bilateral hip incisions -maintain sling/swathe at all times -ortho surgeries completed PT work on transfers to wheelchair DC planning - ortho cleared if plan arranged Iron Hernández MD September 10, 2016 09:25
[2016-09-10] MEDS: MORPHINE SULFATE 4 MG/ML INJ IV PRN ×2 (10:52→14:39)
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
[2016-09-10 12:00] VITALS: BP 123/71; PULSE 93; RESP 19; TEMP 99.8; O2SAT 100
[2016-09-10] MEDS: ENOXAPARIN SODIUM 30 MG/0.3 ML SYRINGE SQ SCH ×2 (12:36→23:43)
[2016-09-10 16:00] VITALS: BP 121/61; PULSE 90; RESP 19; TEMP 98.2; O2SAT 100
[2016-09-10 20:30] VITALS: BP 134/79; PULSE 86; RESP 17; TEMP 99.9; O2SAT 100
[2016-09-10] MEDS: SUMAtriptan SUCCINATE 50 MG TAB PO PRN (23:48)
[2016-09-11 00:30] VITALS: BP 122/75; PULSE 94; RESP 17; TEMP 98.6; O2SAT 100
[2016-09-11] MEDS: MORPHINE SULFATE 4 MG/ML INJ IV PRN (04:10)
[2016-09-11] MEDS: METHOCARBAMOL 500 MG TAB PO SCH ×3 (05:31→21:19)
--- NOTE | 2016-09-11 06:42 | PD.ORT.PN ---
Subjective Subjective Remarks POD 6 s/p reduction bilateral SI joints and application pelvic exfix POD 6 s/p closed reduction of left shoulder doing well. reports pain but resting comfortably. no new complaints Objective Vitals Vital Signs Date Time Temp Pulse Resp B/P Pulse Ox O2 Delivery O2 Flow Rate FiO2 09/11/16 04:45 18 09/11/16 00:44 18 09/11/16 00:44 18 09/11/16 00:30 98.6 94 17 122/75 100 09/10/16 20:30 99.9 86 17 134/79 100 09/10/16 16:00 98.2 90 19 121/61 100 09/10/16 12:00 99.8 93 19 123/71 100 09/10/16 08:00 98.5 80 18 124/67 97 I/O 09/10/16 09/10/16 09/10/16 09/11/16 09/11/16 09/11/16 07:00 15:00 23:00 07:00 15:00 23:00 Intake Total 240 ml 1160 ml 480 ml Output Total 1400 ml 4850 ml 1850 ml Balance -1160 ml -3690 ml -1370 ml Intake Oral 240 ml 1160 ml 480 ml Output Urine Total 1400 ml 4850 ml 1850 ml # Bowel Movements 1 0 Result Diagram: 09/07/16 0724 09/07/16 0724 Imaging Last 24 hours Impressions Shoulder X-Ray 09/05/16 0000 Signed Impressions: Service Date/Time: Monday, September 05, 2016 12:36 - CONCLUSION: Anterior shoulder dislocation. Rob Oconnor MD Pelvis X-Ray 09/05/16 0000 Signed Impressions: Service Date/Time: Monday, September 05, 2016 10:42 - CONCLUSION: Postoperative changes are noted. Rob Oconnor MD Abdomen/Pelvis CT 09/04/162237 Signed Impressions: Service Date/Time: Sunday, September 04, 2016 23:34 - CONCLUSION: 1. Large hepatic laceration of right hepatic lobe with tiny amount of fluid adjacent to the tip of the liver. 2. Multiple fractures. 3. Extraperitoneal hematomas within the pelvis. 4. Slight right lung base contusion and/or atelectasis. Abdi Vang MD Pelvis X-Ray 09/04/162216 Signed Impressions: Service Date/Time: Sunday, September 04, 2016 22:30 - CONCLUSION: Bilateral fractures through the superior and inferior pubic rami. Antolin Roberts MD Lumbar Spine CT 09/04/162216 Signed Impressions: Service Date/Time: Sunday, September 04, 2016 23:36 - CONCLUSION: Multiple fractures, extraperitoneal hematomas within the pelvis discussed on the patient's CT abdomen and pelvis without any significant thecal sac stenosis, however some of the fractures involve the right sacral foramina and injury to sacral roots particularly the right S1 and S2 nerves is not excluded. Abdi Vang MD Head CT 09/04/162216 Signed Impressions: Service Date/Time: Sunday, September 04, 2016 23:28 - CONCLUSION: Unremarkable study except for slight left frontal scalp hematoma. Abdi Vang MD Chest X-Ray 09/04/162216 Signed Impressions: Service Date/Time: Sunday, September 04, 2016 22:32 - CONCLUSION: No acute disease. Antolin Roberts MD Cervical Spine CT 09/04/162216 Signed Impressions: Service Date/Time: Sunday, September 04, 2016 23:28 - CONCLUSION: Unremarkable study. Abdi Vang MD Objective Remarks Pelvis: pin sites clean. minimal drainage. dressings clean and dry. NVI bilaterally Left shoulder: reduced and distally NVI. Not wearing sling Assessment & Plan Problem List: (1) Bilateral pubic rami fractures (2) Dislocation, shoulder closed Assessment and Plan 1) Bilateral SI joint disruption s/p screw fixation - POD 6 2) Bilateral Superior/Inferior pubic rami fractures s/p application external fixator - POD 6 3) Left shoulder dislocation s/p closed reduction - POD 6 -NWB BLE/LUE -pin care bid of x-fix -daily dressing changes bilateral hip incisions -maintain sling/swathe at all times -ortho surgeries completed PT work on transfers to wheelchair DC planning - ortho cleared if plan arranged Al Leblanc September 11, 2016 06:42
[2016-09-11 07:46] VITALS: BP 115/74; PULSE 88; RESP 17; TEMP 99.2; O2SAT 99
[2016-09-11] MEDS: ACETAMINOPHEN/HYDROcodone 325 MG/10 MG TAB PO PRN ×5 (08:37→21:19)
[2016-09-11] MEDS: LACTULOSE SYRUP 20 GM/30 ML CUP PO SCH (08:38)
[2016-09-11] MEDS: DOCUSATE SODIUM 50 MG/SENNA 8.6 MG TAB PO SCH ×2 (08:38→21:00)
[2016-09-11] MEDS: SODIUM CHLORIDE 0.9% FLUSH 10 ML FLUSH IV FLUSH SCH ×2 (08:38→21:20)
[2016-09-11] MEDS: BACITRACIN TOP OINT 15 GM TUBE TOPICAL SCH ×2 (08:41→21:20)
[2016-09-11 11:21] VITALS: BP 112/64; PULSE 78; RESP 17; TEMP 97; O2SAT 99
[2016-09-11] MEDS: ENOXAPARIN SODIUM 30 MG/0.3 ML SYRINGE SQ SCH (11:51)
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
[2016-09-11] MEDS ORDERED: METH500T3 PO (12:19)
[2016-09-11] MEDS ORDERED: Lactulose Liq PO (12:19)
[2016-09-11] MEDS ORDERED: ENOX30P SQ (12:19)
[2016-09-11] MEDS ORDERED: IMIT50TA PO (12:19)
[2016-09-11] MEDS ORDERED: SENN1TAB PO (12:19)
[2016-09-11] MEDS ORDERED: BISA10R RECTAL (12:19)
[2016-09-11] MEDS ORDERED: PROT40TA PO (12:19)
[2016-09-11] MEDS ORDERED: HYDR-3583 PO (12:19)
[2016-09-11 15:54] VITALS: BP 111/64; PULSE 87; RESP 17; TEMP 97.3; O2SAT 97
[2016-09-11 20:40] VITALS: BP 121/73; PULSE 89; RESP 17; TEMP 97.9; O2SAT 100
[2016-09-12] MEDS: ENOXAPARIN SODIUM 30 MG/0.3 ML SYRINGE SQ SCH ×3 (00:06→23:33)
[2016-09-12] MEDS: ACETAMINOPHEN/HYDROcodone 325 MG/10 MG TAB PO PRN ×7 (00:06→21:52)
[2016-09-12] MEDS: PANTOPRAZOLE SOD 40 MG DELAYED RELEASE TAB PO SCH ×2 (00:06→23:33)
[2016-09-12 00:40] VITALS: BP 116/72; PULSE 88; RESP 16; TEMP 98.1; O2SAT 99
[2016-09-12] MEDS: METHOCARBAMOL 500 MG TAB PO SCH ×3 (04:29→19:51)
[2016-09-12 07:15] VITALS: BP 110/66; PULSE 78; RESP 16; TEMP 97.5; O2SAT 99
[2016-09-12] MEDS: DOCUSATE SODIUM 50 MG/SENNA 8.6 MG TAB PO SCH ×2 (08:48→21:52)
[2016-09-12] MEDS: LACTULOSE SYRUP 20 GM/30 ML CUP PO SCH (08:49)
[2016-09-12] MEDS: BACITRACIN TOP OINT 15 GM TUBE TOPICAL SCH ×2 (08:52→21:55)
[2016-09-12] MEDS: SODIUM CHLORIDE 0.9% FLUSH 10 ML FLUSH IV FLUSH SCH ×2 (09:00→21:55)
[2016-09-12 11:41] VITALS: BP 118/76; PULSE 97; RESP 16; TEMP 96.8; O2SAT 99
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
[2016-09-12 16:00] VITALS: BP 116/63; PULSE 103; RESP 16; TEMP 99.3; O2SAT 100
[2016-09-12] MEDS: SUMAtriptan SUCCINATE 50 MG TAB PO PRN ×2 (17:08→21:52)
[2016-09-12 20:28] VITALS: BP 128/64; PULSE 109; RESP 18; TEMP 101.1; O2SAT 100
[2016-09-13 00:30] VITALS: BP 128/72; PULSE 111; RESP 18; TEMP 100.1; O2SAT 97
[2016-09-13] MEDS: ACETAMINOPHEN/HYDROcodone 325 MG/10 MG TAB PO PRN ×4 (01:14→12:51)
[2016-09-13] MEDS: METHOCARBAMOL 500 MG TAB PO SCH (04:57)
[2016-09-13 08:00] VITALS: BP 119/68; PULSE 111; RESP 20; TEMP 100.1; O2SAT 100
[2016-09-13] MEDS: SODIUM CHLORIDE 0.9% FLUSH 10 ML FLUSH IV FLUSH SCH (09:31)
[2016-09-13] MEDS: LACTULOSE SYRUP 20 GM/30 ML CUP PO SCH (09:32)
[2016-09-13] MEDS: DOCUSATE SODIUM 50 MG/SENNA 8.6 MG TAB PO SCH (09:32)
[2016-09-13] MEDS: BACITRACIN TOP OINT 15 GM TUBE TOPICAL SCH (09:33)
--- NOTE | 2016-09-13 09:57 | PD.ORT.PN ---
Subjective Subjective Remarks Resting with pain controlled. Not wearing sling Objective Vitals Vital Signs Date Time Temp Pulse Resp B/P Pulse Ox O2 Delivery O2 Flow Rate FiO2 09/13/16 00:30 100.1 111 18 128/72 97 09/12/16 20:28 101.1 109 18 128/64 100 09/12/16 18:03 16 09/12/16 16:39 16 09/12/16 16:00 99.3 103 16 116/63 100 09/12/16 11:41 96.8 97 16 118/76 99 I/O 09/12/16 09/12/16 09/12/16 09/13/16 09/13/16 09/13/16 07:00 15:00 23:00 07:00 15:00 23:00 Intake Total 1660 ml 480 ml 480 ml Balance 1660 ml 480 ml 480 ml Intake Oral 1660 ml 480 ml 480 ml # Voids 9 4 4 # Bowel Movements 0 0 0 Imaging Last 24 hours Impressions Shoulder X-Ray 09/05/16 0000 Signed Impressions: Service Date/Time: Monday, September 05, 2016 12:36 - CONCLUSION: Anterior shoulder dislocation. Rob Oconnor MD Pelvis X-Ray 09/05/16 0000 Signed Impressions: Service Date/Time: Monday, September 05, 2016 10:42 - CONCLUSION: Postoperative changes are noted. Rob Oconnor MD Abdomen/Pelvis CT 09/04/162237 Signed Impressions: Service Date/Time: Sunday, September 04, 2016 23:34 - CONCLUSION: 1. Large hepatic laceration of right hepatic lobe with tiny amount of fluid adjacent to the tip of the liver. 2. Multiple fractures. 3. Extraperitoneal hematomas within the pelvis. 4. Slight right lung base contusion and/or atelectasis. Abdi Vang MD Pelvis X-Ray 09/04/162216 Signed Impressions: Service Date/Time: Sunday, September 04, 2016 22:30 - CONCLUSION: Bilateral fractures through the superior and inferior pubic rami. Antolin Roberts MD Lumbar Spine CT 09/04/162216 Signed Impressions: Service Date/Time: Sunday, September 04, 2016 23:36 - CONCLUSION: Multiple fractures, extraperitoneal hematomas within the pelvis discussed on the patient's CT abdomen and pelvis without any significant thecal sac stenosis, however some of the fractures involve the right sacral foramina and injury to sacral roots particularly the right S1 and S2 nerves is not excluded. Abdi Vang MD Head CT 09/04/162216 Signed Impressions: Service Date/Time: Sunday, September 04, 2016 23:28 - CONCLUSION: Unremarkable study except for slight left frontal scalp hematoma. Adbi Vang MD Chest X-Ray 09/04/162216 Signed Impressions: Service Date/Time: Sunday, September 04, 2016 22:32 - CONCLUSION: No acute disease. Antolin Roberts MD Cervical Spine CT 09/04/162216 Signed Impressions: Service Date/Time: Sunday, September 04, 2016 23:28 - CONCLUSION: Unremarkable study. Abdi Vang MD Objective Remarks Pelvis: pin sites clean. minimal drainage. dressings clean and dry. NVI bilaterally Left shoulder: reduced and distally NVI. Not wearing sling Assessment & Plan Problem List: (1) Bilateral pubic rami fractures (2) Dislocation, shoulder closed Assessment and Plan 1) Bilateral SI joint disruption s/p screw fixation - POD 7 2) Bilateral Superior/Inferior pubic rami fractures s/p application external fixator - POD 7 3) Left shoulder dislocation s/p closed reduction - POD 7 -NWB BLE/LUE -pin care bid of x-fix -daily dressing changes bilateral hip incisions -maintain sling/swathe at all times -ortho surgeries completed PT work on transfers to wheelchair DC planning - ortho cleared if plan arranged Antolin Castaneda Jr. Sep 13, 2016 09:57
[2016-09-13 12:00] VITALS: BP 121/58; PULSE 113; RESP 20; TEMP 100.3; O2SAT 100
[2016-09-13] MEDS ORDERED: METHOCARBAMOL 500 MG TAB PO SCH (12:00)
[2016-09-13] MEDS: ENOXAPARIN SODIUM 30 MG/0.3 ML SYRINGE SQ SCH (12:49)
[2016-09-13] MEDS ORDERED: GABAPENTIN 300 MG CAP PO SCH (13:00)
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
[2016-09-13] MEDS ORDERED: oxyCODONE/ACETAMINOPHEN 5 MG/325 MG TAB PO PRN (13:45)
[2016-09-13 14:19] LABS: HEMATOCRIT 32.1 % (35.0-46.0); MEAN CELL VOLUME 95.9 FL (80.0-100.0); MEAN CORPUSCULAR HEMOGLOBIN 32.6 PG (27.0-34.0); PLATELET COUNT 557 TH/MM3 (150-450); RED BLOOD COUNT 3.35 MIL/MM3 (4.00-5.30); RED CELL DISTRIBUTION WIDTH 13.9 % (11.6-17.2); REVIEW FLAG FINAL
[2016-09-13 20:06] LABS: BACTERIA, URINE OCC /hpf; BLOOD, URINE NEG (NEG); COMMENT (UR) CULT NOT INDICATED; CULTURE IF INDICATED CULT NOT INDICATED; GLUCOSE,URINE NEG (NEG); KETONE, URINE NEG (NEG); NITRITE,URINE NEG (NEG); SQUAMOUS EPITHELIAL CELL URINE 1 /hpf (0-5); URINE COLOR LIGHT-YELLOW (YELLW/STRAW)
[2016-09-20] MEDS ORDERED: HOSP BED1 (09:43)
[2016-09-20] MEDS ORDERED: WHEEMIS3 (09:43)
[2016-09-20] MEDS ORDERED: [UNRECOGNIZED DRUG - REMARK] (09:43)
[2016-09-24] MEDS ORDERED: FENT25T T-DERMAL (11:16)
[2016-09-24] MEDS ORDERED: GABA600T PO (11:16)
[2016-09-24] MEDS ORDERED: LACT PO (11:16)
[2016-09-24] MEDS ORDERED: SENN1TAB PO (11:16)
[2016-09-24] MEDS ORDERED: PROT40TA PO (11:16)
[2016-09-24] MEDS ORDERED: CYCL1TAB29 PO (11:16)
[2016-09-24] MEDS ORDERED: BACT800T5 PO (11:16)
[2016-09-24] MEDS ORDERED: XARE10TA PO (11:16)
[2016-09-24] MEDS ORDERED: OXYC1TAB36 PO (11:16)
[2016-09-24] MEDS ORDERED: PERC5TAB12 PO (15:42)
== END 2016-09-13 15:44 | DRG 957 ==
LOC: NEPD 22:06 → NEDA 09-05 00:07 → N03A 09-05 01:49 → N06B 09-06 21:50
PROVIDERS: ADMIT Surgery; ATTEND Surgery
PROC: 0T9B70Z Drainage of Bladder with Drainage Device, Via Natural or Artificial Opening (ICD-10-PCS; 2016-09-04)
PROC: 0HQ2XZZ Repair Right Ear Skin, External Approach (ICD-10-PCS; 2016-09-04)
PROC: 0QS235Z Reposition Right Pelvic Bone with External Fixation Device, Percutaneous Approach (ICD-10-PCS; 2016-09-05)
PROC: 0QS Lower Bones, Reposition (ICD-10-PCS; 2016-09-05)
PROC: 0RSKXZZ Reposition Left Shoulder Joint, External Approach (ICD-10-PCS; 2016-09-05)
PROC: 0QS335Z Reposition Left Pelvic Bone with External Fixation Device, Percutaneous Approach (ICD-10-PCS; principal; 2016-09-05 09:31)
DX: S36.113A Laceration of liver, unspecified degree, initial encounter (principal); K66.1 Hemoperitoneum; S27.321A Contusion of lung, unilateral, initial encounter; S32.591A Other specified fracture of right pubis, initial encounter for closed fracture; S06.9X9A Unspecified intracranial injury with loss of consciousness of unspecified duration, initial encounter; S32.019A Unspecified fracture of first lumbar vertebra, initial encounter for closed fracture; S32.029A Unspecified fracture of second lumbar vertebra, initial encounter for closed fracture; S32.039A Unspecified fracture of third lumbar vertebra, initial encounter for closed fracture; S00.03XA Contusion of scalp, initial encounter; S32.10XA Unspecified fracture of sacrum, initial encounter for closed fracture; S32.592A Other specified fracture of left pubis, initial encounter for closed fracture; J98.11 Atelectasis; S36.112A Contusion of liver, initial encounter; M24.412 Recurrent dislocation, left shoulder; S01.311A Laceration without foreign body of right ear, initial encounter; V03.10XA Pedestrian on foot injured in collision with car, pick-up truck or van in traffic accident, initial encounter; Y92.488 Other paved roadways as the place of occurrence of the external cause; Y93.02 Activity, running; Y99.9 Unspecified external cause status; F10.129 Alcohol abuse with intoxication, unspecified; Y90.7 Blood alcohol level of 200-239 mg/100 ml
CPT/HCPCS: 12015; 70450; 71010; 72125; 72131; 72170; 72190; 73020; 73030; 74177; 76000; 80048; 80053; 80076; 80307; 81001; 84155; 84703; 85014; 85018; 85025; 85027; 85610; 85730; 86850; 86900; 86901; 87086; 87641; 94150; 96361; 96374; 96375; 96376; C1713; C1769; J0131; J0330; J0690; J1170; J1650; J2175; J2250; J2270; J2370; J2405; J2710; J3010; J3370; J3411; J7030; J7040; J7050; J7120; L8699; Q9967